=== PATIENT | male | born 1985 | race Caucasian/White ===

== ENCOUNTER 2021-12-29 11:56 | Emergency (ER) | payer OTHER, SELFPAY ==
--- NOTE | 2021-12-29 12:03 | ED.GENADULT ---
HPI - General Adult General Chief complaint: Skin/Abscess/Foreign Body Stated complaint: body rash Time Seen by Provider: 12/29/21 12:08 Source: patient Mode of arrival: ambulatory Limitations: no limitations History of Present Illness HPI narrative: 36 y/o male presented for c/o rash spreading over both arms and torso for 5 days. This started after cutting wood. He states he thinks it is poison zena. Has been appying clotrimazole betamethasone cream that is several years old and taking Benadryl. Endorses itching. Denies burning or drainage. Denies changes to soap, detergent, lotion etc. He denies lip, tongue, throat swelling, shortness of breath or wheezing. Related Data Home Medications Medication Instructions Recorded Confirmed multivitamin 1 tablet PO DAILY 12/29/21 12/29/21 Allergies Allergy/AdvReac Type Severity Reaction Status Date / Time No Known Allergies Allergy Verified 12/29/21 12:04 Review of Systems Review of Systems: CONSTITUTIONAL: Denies body aches, fever, chills, or sweats. EYES: Denies visual changes, redness, or discharge. ENT: Denies rhinorrhea, congestion CARDIOVASCULAR: Denies chest pain, palpitations, or edema. RESPIRATORY: Denies dyspnea. GASTROINTESTINAL: Denies abdominal pain, nausea, vomiting, or diarrhea. SKIN: reports rash and itching MUSCULOSKELETAL: Denies back pain, joint pain, or myalgia. NEUROLOGIC: Denies headache, numbness, tingling, or weakness. PMFSH Comments At time of signature, I have reviewed and agree with nursing past medical, surgical, social and family history unless otherwise noted. Please see nursing chart for further information. There is no relevant family history pertinent to the presenting complaint Exam Narrative: GENERAL: Well-appearing HEAD: Normocephalic, atraumatic. EYES: conjunctivae clear, and EOMI. ENT: Mucous membranes moist. Oropharynx without edema, erythema or lesions. NECK: Supple. No lymphadenopathy CHEST: Clear to auscultation. HEART: Regular rate and rhythm. SKIN: Warm, dry. Significant diffuse erythematous vesicular rash c/w contact dermatitis over bilateral arms and chest spreading to abdomen, nontender no drainage NEURO: Alert and oriented x3. Course Course Emergency Course: Patient is aware of diagnosis, understands and agrees to treatment plan. Anticipatory guidance given. Patient agrees to follow-up as directed and is aware of reasons to seek care at the emergency department. Portions of this record may have been created with voice recognition software Level of Care: Express Care Visit Vital Signs Vital signs: Reviewed Medical Decision Making MDM Narrative Medical decision making narrative: Advised supportive measures and signs/symptoms to go to the ER. Pt is appropriate for outpt treatment and f/u. Differential Diagnosis Differential Diagnosis: Contact dermatitis, viral exanthem, herpes zoster, eczema Discharge Plan Discharge Clinical Impression: Contact dermatitis Qualifiers: Contact dermatitis type: unspecified Patient Disposition: Home, Self-Care Condition: Stable Instructions: Poison Zena (ED) Additional Instructions: Take the steroid and pepcid prescriptions as directed Take Benadryl every 6-8 hours as needed for itching. Cool compresses to the sites of itching, avoid hot water/showers etc Avoid scratching to prevent skin infections. Follow up with your primary care provider as needed Go to the ER for worsening symptoms or concerns (Spreading rash, lip/tongue/throat swelling, difficulty breathing/wheezing, vomiting, dizziness etc) Prescriptions: New famotidine [Pepcid] 40 mg tablet 40 mg PO DAILY Qty: 10 0RF methylprednisolone [Medrol (Bob)] 4 mg tablets,dose pack See Rx Instructions .ROUTE .COMPLEX Qty: 21 0RF Rx Instructions: orally per package directions No Action multivitamin [Daily Multivitamin] Tablet 1 tablet PO DAILY Follow-up/Referrals:
[2021-12-29 12:04] VITALS: BP 145/91; PULSE 84; RESP 16; TEMP 36.8; O2SAT 99
[2021-12-29 12:05] VITALS: BP 145/91; PULSE 84; RESP 16; TEMP 36.8; O2SAT 99
== END 2021-12-29 12:18 | disposition home or self-care (01) ==
PROVIDERS: Emergency Provider Nurse Practitioner Family
DX: L25.9 Unspecified contact dermatitis, unspecified cause (principal)
CPT/HCPCS: 99213; G0463

== ENCOUNTER 2023-09-14 08:12 | Emergency (ER) | payer OTHER, SELFPAY ==
[2023-09-14 08:33] VITALS: BP 123/71; PULSE 69; RESP 18; TEMP 36.4; O2SAT 99
[2023-09-14 08:34] VITALS: BP 123/71; PULSE 69; RESP 18; TEMP 36.4; O2SAT 99
--- NOTE | 2023-09-14 08:51 | ED.GENADULT ---
HPI - General Adult General Chief complaint: Recheck/Abnormal Lab/Rx Stated complaint: wasp sting rt index finger and med refill Source: patient Mode of arrival: ambulatory Limitations: no limitations History of Present Illness HPI narrative: 38 y/o male presented for c/o 2 wasp stings to the right index finger sustained 2 days ago. Endorses itching, swelling to the finger and cannot completely make a fist. Took Claritin and Benadryl. Denies numbness, tingling or change in temperature. Denies lip, tongue, or throat swelling, shortness of breath or wheezing. Denies changes to soap, detergent, lotion, or any other exposures. No one else in the house or any contacts with similar symptoms. Also requests refill acyclovir for cold sores. Related Data Allergies Allergy/AdvReac Type Severity Reaction Status Date / Time No Known Allergies Allergy Verified 09/14/23 08:33 Review of Systems Review of Systems: CONSTITUTIONAL: Denies body aches, fever, chills, or sweats. EYES: Denies visual changes, redness, or discharge. ENT: Denies rhinorrhea, congestion CARDIOVASCULAR: Denies chest pain, palpitations, or edema. RESPIRATORY: Denies cough or dyspnea. GASTROINTESTINAL: Denies abdominal pain, nausea, vomiting, or diarrhea. SKIN: reports insect stings to right index MUSCULOSKELETAL: Denies back pain, joint pain, or myalgia. NEUROLOGIC: Denies headache, numbness, tingling, or weakness. PMFSH Comments At time of signature, I have reviewed and agree with nursing past medical, surgical, social and family history unless otherwise noted. Please see nursing chart for further information. There is no relevant family history pertinent to the presenting complaint Exam Narrative: GENERAL: Well-appearing HEAD: Normocephalic, atraumatic. EYES: conjunctivae clear, and EOMI. ENT: Mucous membranes moist. Oropharynx without edema, erythema or lesions. no tongue, lip edema or other mucosal involvement, NECK: Supple. No lymphadenopathy CHEST: Clear to auscultation. no respiratory compromise, no stridor, no wheezing, no wheezing, HEART: Regular rate and rhythm. SKIN: Warm, dry. Right 2nd digit with moderate swelling extending to Mid dorsal hand and 3rd digit; bruising noted with 2 puncture areas on proximal phalanx c/w insect stings. Decreased ROM flexion to 2nd digit due to swelling. CMS intact. NEURO: Alert and oriented x3. Course Course Emergency Course: Patient is aware of diagnosis, understands and agrees to treatment plan. Anticipatory guidance given. Patient agrees to follow-up as directed and is aware of reasons to seek care at the emergency department. Portions of this record may have been created with voice recognition software Level of Care: Express Care Visit Vital Signs Vital signs: Vital Signs Temperature 97.5 F L 09/14/23 08:33 Pulse Rate 69 09/14/23 08:33 Respiratory Rate 18 09/14/23 08:33 Blood Pressure 123/71 09/14/23 08:33 Pulse Oximetry 99 09/14/23 08:33 Oxygen Delivery Room Air 09/14/23 08:33 Temperature 97.5 F L 09/14/23 08:34 Pulse Rate 69 09/14/23 08:34 Respiratory Rate 18 09/14/23 08:34 Blood Pressure 123/71 09/14/23 08:34 Pulse Oximetry 99 09/14/23 08:34 Oxygen Delivery Room Air 09/14/23 08:34 Reviewed Medical Decision Making MDM Narrative Medical decision making narrative: Does not appear at this time to be erythema multiforme, bullous, SJS, TEN; patient looks well, nontoxic and is tolerating oral intake; appropriate for initial outpatient treatment; discussed the importance of follow-up, patient agrees. Reviewed Rx. pt also requests rf for acyclovir herpes labialis. Instructed patient to go to nearest ER immediately for any worsening symptoms including but not limited to: fever, spreading rash, pain, sore throat, headache, dizziness, chest pain, trouble breathing, or any symptoms concerning to the patient. Differential Diagnosis Differential Diagnosis:
== END 2023-09-14 09:00 | disposition home or self-care (01) ==
PROVIDERS: Emergency Provider Nurse Practitioner Family; Referring Provider Emergency Medicine
DX: T63.461A Toxic effect of venom of wasps, accidental (unintentional), initial encounter (principal); Z76.0 Encounter for issue of repeat prescription
CPT/HCPCS: 99213; G0463